=== PATIENT | male | born 1935 | race Hispanic/Latino ===

== ENCOUNTER 2018-07-04 19:03 | Emergency (ER) | payer SELFPAY ==
[2018-07-04 20:19] LABS: #Eosinphils 0.1 thou/uL (0.0-0.7); #Lymphocytes 2.2 thou/uL (1.20-3.40); #Monocytes 0.7 thou/uL (0.11-0.59); #Neutrophils 5.1 thou/uL (1.40-6.50); %Basophils 0.2 % (0.0-1.0); %Eosinophils 1.2 % (0.0-10.0); %Lymphocytes 27.4 % (21.0-51.0); %Monocytes 8.2 % (0.0-10.0); Hemoglobin 12.2 g/dL (14.0-18.0); Mean Corpuscular Hemoglobin 27.6 pg (27.0-31.0); Mean Corpuscular Volume 86.1 fL (78.0-98.0); Platelet Count 239 thou/uL (130-400); RBC Distribution Width 14.5 % (11.5-14.5); Red Blood Cell (RBC) Count 4.41 mill/uL (4.70-6.10); White Blood Cell (WBC) Count 8.1 thou/uL (4.8-10.8)
[2018-07-04 20:33] LABS: ALT (SGPT) 13 U/L (8-55); AST (SGOT) 24 U/L (5-34); Albumin 3.6 g/dL (3.4-4.8); Alkaline Phosphatase 227 U/L (40-150); Anion Gap 10 mmol/L (10-20); BUN (Urea Nitrogen) 10 mg/dL (8.4-25.7); Bilirubin, Total 0.8 mg/dL (0.2-1.2); Calc. Creatinine Clearance 0 mL/min (70-130); Calcium 9.1 mg/dL (7.8-10.44); Carbon Dioxide 27 mmol/L (23-31); Chloride 103 mmol/L (98-107); Estimated GFR-MDRD Greater than 90; Globulin 4.1 g/dL (2.4-3.5); Glucose 124 mg/dL (83-110); Potassium 3.9 mmol/L (3.5-5.1); Protein, Total 7.7 g/dL (5.8-8.1); Sodium 136 mmol/L (136-145)
[2018-07-04] MEDS ORDERED: Morphine 4 MG/ML VIAL ONE (21:02)
--- NOTE | 2018-07-04 22:44 | RAD ---
TWO VIEWS RIGHT HIP 07/04/18 HISTORY: Right sided hip pain. COMPARISON: None available. FINDINGS: No fracture or dislocation is seen. There does appear to be sclerosis involving the supra-acetabular region right hip without defined margins present. This could be related to degenerative changes, but sclerosis was not appreciated on AP view of the abdomen on 07/03/[address] scan of pelvis may be beneficial for further evaluation. Degenerative changes are seen in the visualized lower lumba r spine. IMPRESSION: 1. 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 This could be on the basis of degenerative ty pe changes, but followup CT scan pelvis is suggested. 2. No acute fracture or dislocation. POS: [facility]
--- NOTE | 2018-07-04 23:08 | RAD ---
THREE VIEWS LUMBAR SPINE 07/04/18 HISTORY: Midline spinous process tenderness of the lumbar spine. Right sided pain. FINDINGS: There is suggestion of five nonribbearing lumbar type vertebral bodies. Multilevel osteophytes are pr esent. Degenerative changes are seen throughout the lumbar spine. vertebral body heights are within n ormal limits, and no fracture or subluxation is seen. Metallic density is seen anterior to the L4 saritha tebral body which may correspond to metallic foreign body overlying the right abdomen on study of 06/23 05/11. Calcifications overlie the left abdomen. 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 The re is slight wedge shaped deformity involving the T9 vertebral body which may be related to minimal w edge shaped compression fracture of indeterminate age. POS: [facility]
--- NOTE | 2018-07-07 12:15 | EKG ---
Test Reason : Blood Pressure : / mmHG Vent. Rate : 095 BPM Atrial Rate : 083 BPM P-R Int : 000 ms QRS Dur : 080 ms QT Int : 350 ms P-R-T Axes : 000 -42 056 degrees QTc Int : 439 ms Accelerated Junctional rhythm Left axis deviation Septal infarct , age undetermined Abnormal ECG Confirmed by JACKIE MCCLENDON DO ([id number]), television news video editor MARY KELLER ([id number]) on 07/07/2018 12:15:18 PM Referred By: Confirmed By:JACKIE MCCLENDON DO
== END 2018-07-04 22:48 | disposition home or self-care (01) ==
LOC: ERS 19:03
DX: M54.5 Low back pain (principal); I10 Essential (primary) hypertension; Z79.899 Other long term (current) drug therapy
CPT/HCPCS: 72100; 80053; 82274; 85025; 93005; 96374; J2270